=== PATIENT | female | born 1970 | race Caucasian/White ===

== ENCOUNTER 2016-11-10 20:30 | Emergency (ER) | payer OTHER ==
[~2016-11-10] VITALS: Ht 175.3 cm; Wt 121.1 kg
[2016-11-10] MEDS ORDERED: IV NORMAL SALINE 1000ML BAG 1,000 ML IV SCH (21:02)
[2016-11-10] MEDS ORDERED: IOHEXOL 300 MG/ML 75 ML VIAL IV ONE (21:30)
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
[2016-11-10 23:06] LABS: ANION GAP 11 (6-14); BLOOD UREA NITROGEN 17 mg/dL (7-20); CALCIUM 8.7 mg/dL (8.5-10.1); CARBON DIOXIDE 26 mmol/L (21-32); CHLORIDE 109 mmol/L (98-107); CREATININE 0.9 mg/dL (0.6-1.0); GFR 67.4; GLUCOSE 110 mg/dL (70-99); POTASSIUM 3.9 mmol/L (3.5-5.1); SODIUM 146 mmol/L (136-145)
[2016-11-10 23:10] LABS: BILIRUBIN,URINE NEGATIVE (NEG); GLUCOSE,URINE NEGATIVE (NEG); NITRITE,URINE NEGATIVE (NEG); PROTEIN,URINE NEGATIVE (NEG-TRACE); UROBILINOGEN,URINE 0.2 mg/dL (0.2 mg/dL)
[2016-11-10 23:12] LABS: ALBUMIN 3.2 g/dL (3.4-5.0); ALK PHOS 62 U/L (46-116); ALT (SGPT) 18 U/L (14-59); AST (SGOT) 11 U/L (15-37); DIRECT BILIRUBIN < 0.1 mg/dL (0.0-0.2); TOTAL BILIRUBIN 0.2 mg/dL (0.2-1.0); TOTAL PROTEIN 6.4 g/dL (6.4-8.2)
[2016-11-10 23:17] LABS: RBC,URINE 0 /HPF (0-2)
[2016-11-10 23:18] LABS: BACTERIA,URINE FEW /HPF (0-FEW); SQUAMOUS EPITHELIAL CELL,UR MOD /LPF
[2016-11-10 23:21] LABS: BARBITURATES NEG (NEG); BENZODIAZEPINES POS (NEG); CANNABINOIDS NEG (NEG); COCAINE NEG (NEG); METHADONE NEG (NEG); OPIATES NEG (NEG); PHENCYCLIDINE NEG (NEG)
[2016-11-10 23:23] LABS: ETHANOL, URINE NEG (NEG)
[2016-11-10] MEDS ORDERED: HYDR-2666 PO (23:43)
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
[2016-11-10 23:51] LABS: NEG OBC UR NEG; POS OBC UR POS
[2016-11-11 00:06] LABS: BASO # 0.1 x10^3/uL (0.0-0.2); BASO % 1 % (0-3); EOS % 2 % (0-3); HEMATOCRIT 35.3 % (36.0-47.0); HEMOGLOBIN 11.5 g/dL (12.0-15.5); LYMPH # 2.2 x10^3/uL (1.0-4.8); LYMPH % 35 % (24-48); MEAN CORPUSCULAR HEMOGLOBIN 29 pg (25-35); MEAN CORPUSCULAR HGB CONC 33 g/dL (31-37); MEAN CORPUSCULAR VOLUME 90 fL (79-100); MONO % 6 % (0-9); NEUT % 56 % (31-73); PLATELET COUNT 209 x10^3/uL (140-400); RED BLOOD COUNT 3.92 x10^6/uL (3.50-5.40); RED CELL DISTRIBUTION WIDTH 13.3 % (11.5-14.5); WHITE BLOOD COUNT 6.2 x10^3/uL (4.0-11.0)
[2016-11-11 00:13] LABS: INR 1.1 (0.8-1.1); PROTHROMBIN TIME PATIENT 13.4 SEC (11.7-14.0)
[2016-11-11 00:30] VITALS: BP 125/72
--- NOTE | 2016-11-11 06:34 | EKG ---
[facility] [address] [place] [address] Test Date: 2016-11-10 Test Time: 20:58:40 Pat Name: ALVINO NORTON Department: Room: Gender: F Figure Skater: : 1970 Requested By: BAM CORDERO Order Number: [id number] Reading MD: Rolanda Clay Measurements Intervals [place] Rate: 93 P: 0 VT: 164 QRS: 34 QRSD: 158 T: -49 QT: 392 QTc: 490 Interpretive Statements SINUS RHYTHM NON SPECIFIC INTRAVENTRICULAR BLOCK ABNORMAL ECG RI6.01 No previous ECG available for comparison Electronically Signed On 11-14-2016 19:58:20 AT HOME INDEPENDENT CALL CENTER AGENT by Rolanda Clay
--- NOTE | 2016-11-11 06:35 | EKG ---
[facility] [address] [place] [address] Test Date: 2016-11-10 Test Time: 23:31:32 Pat Name: ALVINO NORTON Department: Room: Gender: F Bundle Tier And Labeler: : 1970 Requested By: BAM CORDERO Order Number: [id number] Reading MD: Rolanda Clay Measurements Intervals [place] Rate: 76 P: 38 NV: 168 QRS: 27 QRSD: 90 T: 22 QT: 380 QTc: 432 Interpretive Statements SINUS RHYTHM NO SPECIFIC ECG ABNORMALITIES RI6.01 No previous ECG available for comparison Electronically Signed On 11-14-2016 19:58:45 QUALITY REP by Rolanda Clay
== END 2016-11-11 00:39 | disposition home or self-care (01) ==
LOC: ER 20:30
DX: M54.2 Cervicalgia (principal); M54.5 Low back pain; R07.89 Other chest pain; M54.6 Pain in thoracic spine; R10.11 Right upper quadrant pain; R10.32 Left lower quadrant pain; R10.31 Right lower quadrant pain; R10.12 Left upper quadrant pain; Z90.49 Acquired absence of other specified parts of digestive tract; Z88.2 Allergy status to sulfonamides; V89.2XXA Person injured in unspecified motor-vehicle accident, traffic, initial encounter; Y93.89 Activity, other specified; Y92.410 Unspecified street and highway as the place of occurrence of the external cause; Y99.8 Other external cause status
CPT/HCPCS: 36415; 70450; 71260; 72125; 74177; 80048; 80076; 81001; 81025; 83605; 83690; 84484; 85027; 85610; 85730; 86850; 86900; 86901; 93005; 96360; 96361; 99285; G0480; G0481; J7030

== ENCOUNTER 2019-07-11 18:52 | Inpatient (IN) | payer OTHER ==
[~2019-07-11] VITALS: Ht 172.7 cm; Wt 134.8 kg
[~2019-07-11 18:52] MED LIST: HYDR-2761 PO
[2019-07-11 20:30] VITALS: BP 135/87
[2019-07-11] MEDS ORDERED: HYDROcodone/APAP 5/325MG 1 TAB TABLET PO PRN (20:30)
[2019-07-11] MEDS ORDERED: ACETAMINOPHEN 325 MG TABLET. PO PRN (20:30)
[2019-07-11] MEDS ORDERED: ONDANSETRON ODT 4 MG TAB.RAPDIS. PO PRN (20:30)
[2019-07-11] MEDS ORDERED: ALBUTEROL SULFATE 2.5 MG/3 ML NEBU. NEB PRN (20:30)
[2019-07-11] MEDS ORDERED: ALBU2.5V5 NEB (20:42)
[2019-07-11] MEDS ORDERED: ACET325T9 PO (20:42)
[2019-07-11] MEDS ORDERED: CHOL10003 PO (20:42)
[2019-07-11] MEDS ORDERED: SACU1TAB PO (20:42)
[2019-07-11] MEDS ORDERED: METO-239 PO (20:42)
[2019-07-11] MEDS ORDERED: FLUT9.9S NS (20:42)
[2019-07-11] MEDS ORDERED: TAMO20TA PO (20:42)
[2019-07-11] MEDS ORDERED: CETI10TA16 PO (20:42)
[2019-07-11] MEDS ORDERED: ASPI-630 PO (20:42)
[2019-07-11] MEDS ORDERED: ONDA4TAB12 PO (20:42)
[2019-07-11] MEDS: SACUBITRIL/VALSARTAN 24/26MG TABLET. PO SCH (21:21)
[2019-07-11 22:13] VITALS: BP 112/69
[2019-07-11] MEDS ORDERED: ZOLPIDEM 5 MG TABLET. PO PRN (23:00)
[2019-07-12] VITALS (13 sets, daily range): BP systolic 102–122; BP diastolic 63–77
[2019-07-12] MEDS ORDERED: CHOLECALCIFEROL (VITAMIN D3) 1,000 UNIT TABLET PO SCH (09:00)
[2019-07-12] MEDS ORDERED: FLUTICASONE 50MCG/NASAL SPRAY 16GM BOTTLE. NS SCH (09:00)
[2019-07-12] MEDS ORDERED: METOPROLOL SUCC 24HR ER 50 MG TAB.ER.24H. PO SCH (09:00)
[2019-07-12] MEDS ORDERED: TAMOXIFEN 10 MG TABLET PO SCH (09:00)
[2019-07-12] MEDS ORDERED: CETIRIZINE HCL 10 MG TABLET. PO SCH (09:00)
[2019-07-12] MEDS ORDERED: ASPIRIN CHEWABLE 81 MG TABLET. PO SCH (09:00)
[2019-07-12] MEDS: SACUBITRIL/VALSARTAN 24/26MG TABLET. PO SCH ×2 (11:31→19:01)
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
[2019-07-12] MEDS ORDERED: HEPARIN for IV BOLUS 10,000 UNIT/10 ML VIAL. ONE (12:45)
[2019-07-12] MEDS ORDERED: MIDAZOLAM HCL/PF 2 MG/2 ML VIAL. ONE ×2 (12:45→13:20)
[2019-07-12] MEDS ORDERED: VERAPAMIL 5 MG/2 ML VIAL. ONE (12:45)
[2019-07-12] MEDS ORDERED: fentaNYL PF VIAL 100 MCG/2 ML VIAL ONE (12:45)
[2019-07-12] MEDS ORDERED: NITROGLYCERIN 200 MCG/2 ML SYRINGE FOR CATH/VASC LAB. ONE (12:46)
[2019-07-12] MEDS ORDERED: LIDOCAINE 1% Multi-Dose 20 ML VIAL. ONE ×2 (12:46→12:47)
--- NOTE | 2019-07-12 12:47 | NUR ---
SS following for discharge planning. SS reviewed pt chart. Pt is from home with spouse and is currently on room air. SS will continue to follow for discharge planning.
[2019-07-12 13:19] LABS: ALBUMIN 3.3 g/dL (3.4-5.0); ALBUMIN/GLOBULIN RATIO 0.9 (1.0-1.7); CALCIUM 8.9 mg/dL (8.5-10.1); CREATININE 1.2 mg/dL (0.6-1.0); GFR 47.7; POTASSIUM 4.7 mmol/L (3.5-5.1); TOTAL BILIRUBIN 0.7 mg/dL (0.2-1.0)
[2019-07-12] MEDS ORDERED: LIDOCAINE 1% Multi-Dose 20 ML VIAL. INJ ONE (13:30)
[2019-07-12] MEDS ORDERED: NITROGLYCERIN 200 MCG/2 ML SYRINGE FOR CATH/VASC LAB. IART ONE (13:30)
[2019-07-12] MEDS ORDERED: HEPARIN for IV BOLUS 10,000 UNIT/10 ML VIAL. IART ONE (13:30)
[2019-07-12] MEDS ORDERED: fentaNYL PF VIAL 100 MCG/2 ML VIAL IV ONE (13:30)
[2019-07-12] MEDS ORDERED: VERAPAMIL 5 MG/2 ML VIAL. IART ONE (13:30)
[2019-07-12] MEDS ORDERED: MIDAZOLAM HCL/PF 2 MG/2 ML VIAL. IV ONE (13:30)
[2019-07-12] MEDS ORDERED: IOHEXOL 300 MG/ML 100ML VIAL. IART ONE (13:30)
--- NOTE | 2019-07-12 13:43 | PDOC ---
CARDIO Progress Notes Date and Time Date of Service 07/12/19 Time of Evaluation 1115 Subjective Subjective: No Chest Pain, No shortness of breath, No Palpitations, Other (feeling much better today, cough resolved) Vitals Vitals Vital Signs Date Time Temp Pulse Resp B/P (MAP) Pulse Ox O2 Delivery O2 Flow Rate FiO2 07/12/19 13:34 77 22 98 Room Air 07/12/19 11:31 122/69 07/12/19 11:00 97.7 97.7 Weight Weight [ ] Input and Output Intake and Output Intake and Output 07/12/19 07:00 Intake Total 700 ml Balance 700 ml Intake Oral 700 ml # Voids 1 Laboratory Labs Laboratory Tests Test 07/12/19 12:40 Sodium Level 143 mmol/L (136-145) Potassium Level 4.7 mmol/L (3.5-5.1) Chloride Level 107 mmol/L (98-107) Carbon Dioxide Level 29 mmol/L (21-32) Anion Gap 7 (6-14) Blood Urea Nitrogen 22 mg/dL (7-20) Creatinine 1.2 mg/dL (0.6-1.0) Estimated GFR (Cockcroft-Gault) 47.7 BUN/Creatinine Ratio 18 (6-20) Glucose Level 100 mg/dL (70-99) Calcium Level 8.9 mg/dL (8.5-10.1) Total Bilirubin 0.7 mg/dL (0.2-1.0) Aspartate Amino Transf (AST/SGOT) 15 U/L (15-37) Alanine Aminotransferase (ALT/SGPT) 15 U/L (14-59) Alkaline Phosphatase 57 U/L (46-116) Total Protein 7.0 g/dL (6.4-8.2) Albumin 3.3 g/dL (3.4-5.0) Albumin/Globulin Ratio 0.9 (1.0-1.7) Physical Exam HEENT: Neck Supple W Full Motion Chest: Symmetric LUNGS: Clear to Auscultation Heart: S1S2, RRR, no murmurs Abdomen: Soft N/T Extremities: Other (trace bilateral LE edema) Neurology: alert, oriented, follow commands Assessment Assessment 1. Acute systolic heart failure; better compensated following diuresis 2. NICM, new finding. LVEF 20%. LHC without significant obstructive disease 3. LBBB 4. Hypertension; controlled 5. Pulm HTN; PAP 77 mmHg 6. H/o breast CA s/p chemotherapy Recommendations HF optimization. Continue Toprol, Entresto. Add spironolactone Will arrange for LifeVest upon discharge in primary prevention of SCD BMP next week Follow up with Dr. Cobos in [place] 07/25/19 at 1:45pm. Repeat echo in 3 months to re-evaluate LVEF and assess need for AICD implantation in primary prevention of SCD. CLIFF BURK APRN Jul 12, 2019 13:43
[2019-07-12] MEDS ORDERED: SPIR25TA5 PO (14:04)
[2019-07-12] MEDS ORDERED: METO50TA4 PO (14:04)
[2019-07-12] MEDS ORDERED: SACU1TAB PO (14:04)
--- NOTE | 2019-07-12 14:38 | CARD ---
MR#: [id number] Date of Study: 07/12/2019 Ordering Physician: RONNIE CHAPPELL, Referring Physician: RONNIE CHAPPELL, Tech: RT Zaheer (R) AUDREY APPROVED REPORT Technologist: RT Zaheer (R) AUDREY Nurse: Procedure(s) performed: FLUORO TIME: 1.7 MIN DOSE: [id number] CONTRAST: 38ml SEDATION TIME: 27min LHC, Coronary angiography HISTORY : The patient is a 48 year-old female with a history of . INDICATION The indication(s) include : dyspnea. [facility] Clinical Frailty Scale [facility] Clinical Frailty Scale: Moderately Frail Heart Failure Heart Failure: Yes If Yes, Newly Diagnosed: Yes If Yes, HF Type: Diastolic Systolic If Yes, NYHA Class: Class III PROCEDURE NARRATIVE INFORMED CONSENT: After explaining the risks and benefits of the procedure and alternatives, informed consent was obtained. The patient was brought electively to the cardiac catheterization lab. A timeout was performed confi rming the patient's name, date of , procedure, and site of procedure. All necessary personnel w ere wearing the appropriate protective equipment and radiation monitor devices. (See nursing notes for medications administered). ACCESS: The right wrist was sterilely prepped and draped in the usual fashion. The right wrist was infiltrat ed with 1 mL of 2% lidocaine for subcutaneous anesthesia. A 6 [place] Terumo glide sheath was inserte d into the right radial artery without difficulty. CORONARY ANGIOGRAPHY: Right and left coronary angiography was performed using a 6Fr TIG 4.0 catheter. Left ventricular en d diastolic pressure was obtained with a pigtail catheter and pullback was performed. All catheter e xchanges and advancements were performed over a guidewire. CLOSURE: At case completion the right radial sheath was removed and a Terumo radial band was applied with 13 m l of air. COMPLICATIONS: The patient tolerated the procedure well and there were no immediate complications. FINDINGS: HEMODYNAMICS: LVEDP 20 mm Hg No gradient on LV to aortic pullback. AO: 128/78 LEFT VENTRICULOGRAM: Deferred due to known EF of 25%. CORONARY ANGIOGRAPHY: LM is a large caliber vessel with normal angiographic appearance. LAD is a large caliber vessel with normal angiographic appearance. LCx is a moderate caliber non-dominant vessel with normal angiographic appearance. OM1 is a large caliber vessel with normal angiographic apeparance. RCA is a large caliber dominant vessel with normal angiographic appearance. RPDA and RPL are moderate caliber vessels with normal angiographic appearance. Conclusion 1. Mild acute on chronic decompensated diastolic/systolic HF. LVEDP 19 mm Hg 2. Normal angiographic appearance of the coronary arteries. Recommendations Aggressive Medical Therapy Signed by : Ronnie Chappell, Electronically Approved : 07/12/2019 14:37:36
[2019-07-12] MEDS ORDERED: SPIRONOLACTONE 25 MG TABLET PO SCH (15:00)
--- NOTE | 2019-07-12 16:22 | PDOC3 ---
Discharge Summary Date of Admission: Jul 12, 2019 Date of Discharge: Jul 12, 2019 Follow-Up: 3-5 days Admitting Diagnosis comment: VTE Prophylaxis Ordered VTE Prophylaxis Devices: Yes VTE Pharmacological Prophylaxi: Yes Assessment/Plan Assessment/Plan IMPRESSION 1. acute CHF 2. NICM, LVEF 20%. LHC without significant obstructive disease ? POSSIBLE VIRAL cardiomyopathy vs chemo related 3. LBBB 4. Hypertension; controlled 5. Pulm HTN; PAP 77 mmHg, SEVERE 6. HX BREAST CA 7. ? VANESSA PLAN ADMIT CVC BED CONSULT CARDIOLOGY CATH TODAY oncology consult [facility] HS OXIMETRY OUT PT 75 min pt exam, chart review DC PLANNING , > 50% of time spent with exam, chart review, pt care coordination Brief Hospital Course Ms. Luo is a 48 old [sex] who presented with [CHF ] CONDITION AT DISCHARGE: Improved Discharge Medications Current Medications Acetaminophen (Tylenol) 650 mg PRN Q8HRS PRN PO MILD PAIN 1-3; Start 07/11/19 at 20:30 Albuterol Sulfate (Ventolin Neb Soln) 2.5 mg PRN Q4HRS PRN NEB SHORTNESS OF BREATH; Start 07/11/19 at 20:30 Aspirin (Children'S Aspirin) 81 mg DAILY PO Last administered on 07/12/19at 08:39; Start 07/12/19 at 09:00 Cetirizine HCl (ZyrTEC) 10 mg DAILY PO ; Start 07/12/19 at 09:00 Vitamin D (Vitamin D3) 1,000 unit DAILY PO Last administered on 07/12/19at 15:43; Start 07/12/19 at 09:00 Acetaminophen/ Hydrocodone Bitart (Lortab 5/325) 1 tab PRN Q6HRS PRN PO MODERATE PAIN 4-6 Last administered on 07/11/19at 23:25; Start 07/11/19 at 20:30 Metoprolol Succinate (Toprol Xl) 50 mg DAILY PO Last administered on 07/12/19at 08:40; Start 07/12/19 at 09:00 Ondansetron HCl (Zofran Odt) 2 mg PRN Q8HRS PRN PO nausea 1ST CHOICE; Start 07/11/19 at 20:30 Sacubitril/ Valsartan (Entresto 24 Mg-26 Mg) 1 tab BID PO Last administered on 07/12/19at 11:31; Start 07/11/19 at 21:00 Fluticasone Propionate (Flonase) 2 spray DAILY NS ; Start 07/12/19 at 09:00 Tamoxifen Citrate (Nolvadex) 20 mg DAILY PO Last administered on 07/12/19at 15:44; Start 07/12/19 at 09:00 Zolpidem Tartrate (Ambien) 5 mg PRN QHS PRN PO INSOMNIA Last administered on 07/11/19at 23:21; Start 07/11/19 at 23:00 Fentanyl Citrate (Fentanyl 2ml Vial) 100 mcg STK-MED ONCE .ROUTE ; Start 07/12/19 at 12:45; Stop 07/12/19 at 12:45; Status DC Midazolam HCl (Versed) 2 mg STK-MED ONCE .ROUTE ; Start 07/12/19 at 12:45; Stop 07/12/19 at 12:46; Status DC Heparin Sodium (Porcine) (Heparin Sodium) 10,000 unit STK-MED ONCE .ROUTE ; Start 07/12/19 at 12:45; Stop 07/12/19 at 12:46; Status DC Verapamil HCl (Verapamil) 5 mg STK-MED ONCE .ROUTE ; Start 07/12/19 at 12:45; Stop 07/12/19 at 12:46; Status DC Nitroglycerin (Nitroglycerin) 200 mcg STK-MED ONCE .ROUTE ; Start 07/12/19 at 12:46; Stop 07/12/19 at 12:46; Status DC Lidocaine HCl (Lidocaine 1% 20ml Vial) 20 ml STK-MED ONCE .ROUTE ; Start 07/12/19 at 12:46; Stop 07/12/19 at 12:47; Status DC Heparin Sodium/ Sodium Chloride 1,000 ml @ As Directed STK-MED ONCE .ROUTE ; Start 07/12/19 at 12:47; Stop 07/12/19 at 12:47; Status DC Lidocaine HCl (Lidocaine 1% 20ml Vial) 20 ml STK-MED ONCE .ROUTE ; Start 07/12/19 at 12:47; Stop 07/12/19 at 12:48; Status DC Midazolam HCl (Versed) 2 mg STK-MED ONCE .ROUTE ; Start 07/12/19 at 13:20; Stop 07/12/19 at 13:20; Status DC Nitroglycerin (Nitroglycerin) 200 mcg 1X ONCE IART Last administered on 07/12/19 13:30; Start 07/12/19 at 13:30; Stop 07/12/19 at 13:34; Status DC Verapamil HCl (Verapamil) 2.5 mg 1X ONCE IART Last administered on 07/12/19 13:30; Start 07/12/19 at 13:30; Stop 07/12/19 at 13:34; Status DC Heparin Sodium (Porcine) (Heparin Sodium) 2,500 unit 1X ONCE IART Last administered on 07/12/19 13:30; Start 07/12/19 at 13:30; Stop 07/12/19 at 13:34; Status DC Midazolam HCl (Versed) 3 mg 1X ONCE IV Last administered on 07/12/19 13:30; Start 07/12/19 at 13:30; Stop 07/12/19 at 13:34; Status DC Fentanyl Citrate (Fentanyl 2ml Vial) 100 mcg 1X ONCE IV Last administered on 07/12/19 13:30; Start 07/12/19 at 13:30; Stop 07/12/19 at 13:34; Status DC Iohexol (Omnipaque 300 Mg/ml) 38 ml 1X ONCE IART Last administered on 07/12/19 13:30; Start 07/12/19 at 13:30; Stop 07/12/19 at 13:34; Status DC Lidocaine HCl (Lidocaine 1% 20ml Vial) 1 ml 1X ONCE INJ Last administered on 07/12/19 13:30; Start 07/12/19 at 13:30; Stop 07/12/19 at 13:34; Status DC Spironolactone (Aldactone) 25 mg DAILY PO Last administered on 07/12/19at 15:45; Start 07/12/19 at 15:00 Active Scripts Active Spironolactone 25 Mg Tablet 1 Tab PO DAILY 30 Days Entresto 24 mg-26 mg Tablet (Sacubitril/Valsartan) 1 Each Tablet 1 Tab PO BID 30 Days Toprol Xl (Metoprolol Succinate) 50 Mg Tab.er.24h 50 Mg PO DAILY 30 Days Hydrocodone-Apap 5-325 (Hydrocodone Bit/Acetaminophen) 1 Each Tablet 1 Tab PO PRN Q6HRS PRN Be careful as this medication may cause you to be drowsy or tired. Do not drive on this medication. Reported Tamoxifen Citrate 20 Mg Tablet 1 Tab PO DAILY 30 Days Entresto 24 mg-26 mg Tablet (Sacubitril/Valsartan) 1 Each Tablet 1 Each PO BID Ondansetron Odt (Ondansetron) 4 Mg Tab.rapdis 0.5 Tab PO PRN Q6-8HRS Metoprolol Succinate ( Xl ) (Metoprolol Succinate) 25 Mg Tab.er.24h 50 Mg PO DAILY Flonase Allergy Relief (Fluticasone Propionate) 9.9 Ml [place].susp 2 Sprays NS DAILY Vitamin D3 (Cholecalciferol (Vitamin D3)) 1,000 Unit Tablet 1,000 Unit PO DAILY Cetirizine Hcl 10 Mg Tablet 1 Tab PO DAILY Aspirin 81 Mg Tab.chew 1 Tab PO DAILY Albuterol Sulfate Neb Soln (Albuterol Sulfate) 2.5 Mg/3 Ml Vial.neb 1 Vial NEB PRN Q4HRS Tylenol (Acetaminophen) 325 Mg Tablet 650 Mg PO PRN Q8HRS PRN Vital Signs Vital Signs Date Time Temp Pulse Resp B/P (MAP) Pulse Ox O2 Delivery O2 Flow Rate FiO2 07/12/19 15:00 82 16 103/74 (84) 94 Room Air 07/12/19 13:30 2.0 07/12/19 11:00 97.7 97.7 Labs Laboratory Tests Test 07/12/19 12:40 Sodium Level 143 mmol/L (136-145) Potassium Level 4.7 mmol/L (3.5-5.1) Chloride Level 107 mmol/L (98-107) Carbon Dioxide Level 29 mmol/L (21-32) Anion Gap 7 (6-14) Blood Urea Nitrogen 22 mg/dL (7-20) Creatinine 1.2 mg/dL (0.6-1.0) Estimated GFR (Cockcroft-Gault) 47.7 BUN/Creatinine Ratio 18 (6-20) Glucose Level 100 mg/dL (70-99) Calcium Level 8.9 mg/dL (8.5-10.1) Total Bilirubin 0.7 mg/dL (0.2-1.0) Aspartate Amino Transf (AST/SGOT) 15 U/L (15-37) Alanine Aminotransferase (ALT/SGPT) 15 U/L (14-59) Alkaline Phosphatase 57 U/L (46-116) Total Protein 7.0 g/dL (6.4-8.2) Albumin 3.3 g/dL (3.4-5.0) Albumin/Globulin Ratio 0.9 (1.0-1.7) Laboratory Tests Test 07/12/19 12:40 Sodium Level 143 mmol/L (136-145) Potassium Level 4.7 mmol/L (3.5-5.1) Chloride Level 107 mmol/L (98-107) Carbon Dioxide Level 29 mmol/L (21-32) Anion Gap 7 (6-14) Blood Urea Nitrogen 22 mg/dL (7-20) Creatinine 1.2 mg/dL (0.6-1.0) Estimated GFR (Cockcroft-Gault) 47.7 BUN/Creatinine Ratio 18 (6-20) Glucose Level 100 mg/dL (70-99) Calcium Level 8.9 mg/dL (8.5-10.1) Total Bilirubin 0.7 mg/dL (0.2-1.0) Aspartate Amino Transf (AST/SGOT) 15 U/L (15-37) Alanine Aminotransferase (ALT/SGPT) 15 U/L (14-59) Alkaline Phosphatase 57 U/L (46-116) Total Protein 7.0 g/dL (6.4-8.2) Albumin 3.3 g/dL (3.4-5.0) Albumin/Globulin Ratio 0.9 (1.0-1.7) Allergies Allergies Coded Allergies Type Severity Reaction Last Updated Verified Sulfa (Sulfonamide Antibiotics) Allergy Intermediate 07/11/19 Yes Disposition/Orders: D/C to Home HELEN GOEL MD Jul 12, 2019 16:22
--- NOTE | 2019-07-12 16:22 | DISCH ---
DISCHARGE INSTRUCTIONS Condition on Discharge Condition on Discharge: Stable Activity After Discharge Activity Instructions for Disc: Activity as tolerated Driving Instructions after Dis: Do not drive Diet after Discharge Diet after Discharge: Cardiac Liquid Texture: Thin Liquid Checks after Discharge Checks after discharge: Check blood press - daily Contacting the [employer] after DC Call your doctor for: If your condition worsens Warfarin Follow-Up Warfarin Follow UP: SEE ONCOLOGY AT [facility] HELEN GOEL MD Jul 12, 2019 16:22
--- NOTE | 2019-07-12 19:00 | NUR ---
Discharge Note: ALVINO NORTON [address] Discharge instructions and discharge home medications reviewed with Patient and a copy given. All questions have been answered and understanding verbalized. Prescriptions for entresto, metoprolol, and aldactone given to patient. Patient educated on lifevest and post cath care instructions. The following instructions and handouts were given: Heart failure, cardiac diet, metoprolol, entresto, and aldactone. Discontinued lines and drains: Midline. Patient discharged to Home or Self Care with Spouse via [facility]
== END 2019-07-12 19:20 | disposition home or self-care (01) | DRG 287 ==
LOC: 2 SOUTH 20:25
PROVIDERS: ADMIT Internal Medicine; ATTEND Internal Medicine
PROC: 4A023N7 Measurement of Cardiac Sampling and Pressure, Left Heart, Percutaneous Approach (ICD-10-PCS; principal; 2019-07-12)
PROC: B2111ZZ Fluoroscopy of Multiple Coronary Arteries using Low Osmolar Contrast (ICD-10-PCS; 2019-07-12)
DX: I11.0 Hypertensive heart disease with heart failure (principal); I50.43 Acute on chronic combined systolic (congestive) and diastolic (congestive) heart failure; I42.8 Other cardiomyopathies; I42.7 Cardiomyopathy due to drug and external agent; E78.5 Hyperlipidemia, unspecified; I44.7 Left bundle-branch block, unspecified; G47.33 Obstructive sleep apnea (adult) (pediatric); I27.20 Pulmonary hypertension, unspecified; B33.24 Viral cardiomyopathy; K21.9 Gastro-esophageal reflux disease without esophagitis; T45.1X5A Adverse effect of antineoplastic and immunosuppressive drugs, initial encounter; Y92.89 Other specified places as the place of occurrence of the external cause; Z82.49 Family history of ischemic heart disease and other diseases of the circulatory system; Z90.49 Acquired absence of other specified parts of digestive tract; Z92.21 Personal history of antineoplastic chemotherapy; Z98.82 Breast implant status; Z85.3 Personal history of malignant neoplasm of breast; Z88.2 Allergy status to sulfonamides; Z79.899 Other long term (current) drug therapy
CPT/HCPCS: 36415; 80053; 93458; 99152; 99153; C1769; C1892; J1644; J2250; J3010; J3490; Q9967; G0378

== ENCOUNTER → 2019-10-30 | Outpatient (CLI) | payer OTHER ==
[2019-07-12 19:01] VITALS: BP 103/74
[~2019-10-30] MED LIST changes: +ACET325T9 PO; +ALBU2.5V5 NEB; +ASPI-630 PO; +CETI10TA16 PO; +CHOL10003 PO; +FLUT9.9S NS; +METO-239 PO; +METO50TA4 PO; +ONDA4TAB12 PO; +SACU1TAB PO; +SPIR25TA5 PO; +TAMO20TA PO; +ZOLPIDEM 5 MG TABLET. PO ONE
--- NOTE | 2019-10-31 18:48 | SLEEP ---
DATE OF STUDY: 10/30/2019 SLEEP STUDY ATTENDING PHYSICIAN: Dillon Ojeda MD. REFERRING PHYSICIAN: Good Cobos MD. The patient is a 48-year-old who weighs 240 pounds with a BMI of 44. The patient's [place] score was 11. The patient underwent diagnostic sleep study performed at [facility]. During the night study, the patient spent 431 minutes in bed and slept for 348 minutes with a sleep efficiency of 81%. Sleep latency was 64 minutes with a REM latency of 185 minutes. Sleep architecture showed increased stage 1 sleep, normal stage 2 sleep, normal slow wave and slightly reduced REM sleep. During the night study, the patient had 10 obstructive apneas, no mixed or central apneas and 65 hypopneas. The patient's apnea-hypopnea index was 13 per hour with a supine index of 18 per hour and a REM index of 65 per hour. EKG monitoring revealed an average heart rate of 79 beats per minute, bundle branch block pattern with frequent PVC's. No sustained arrhythmias observed. Nocturnal oximetry study revealed a mean oxygen saturation of 98% with the lowest of 80%. 7.6% of time, oxygen saturation remained between 80% and 89%. PLMS were seen at index of 32 per hour and 6 per hour caused EEG arousals. The patient did meet the criteria for CPAP initiation, but it was late in the night. As a result, there was not enough time to initiate CPAP. IMPRESSION: 1. Mild sleep apnea-hypopnea syndrome with moderate increase during supine sleep and further worsening during REM sleep. Total AHI 13 per hour, supine AHI 18 per hour and a REM AHI of 65 per hour. 2. Nocturnal hypoxia secondary to obstructive sleep apnea. 3. Moderate periodic limb movements. RECOMMENDATIONS: 1. The patient is clinically symptomatic. The patient would benefit from treatment of sleep apnea with CPAP. 2. Alternate treatment option would include use of an oral appliance. 3. Once the patient is optimally treated, then follow up in 4-6 weeks to assess compliance with treatment and to document clinical improvement. 4. Weight loss is strongly advised. 5. Avoid [employer] depressants. 6. Cautioned regarding driving until symptoms of sleep apnea resolve with above recommendations. LAURA ORTEGA MD DR: LETTY/randi CABA#: [id number] / [id number] DILLON Mclain MD, PRASHANTH MD MTDD
== END | disposition home or self-care (01) ==
LOC: RT 19:15
PROVIDERS: ATTEND Internal Medicine Cardiovascular Disease
DX: G47.33 Obstructive sleep apnea (adult) (pediatric) (principal); R06.00 Dyspnea, unspecified; R09.02 Hypoxemia
CPT/HCPCS: 95810